=== PATIENT | female | born 1975 | race African-American/Black ===

== ENCOUNTER 2016-11-09 14:11 | Emergency (ER) | payer OTHER ==
[2016-11-09 14:28] VITALS: BP 125/86; PULSE 91; TEMP 97.8; BMI 39.6
--- NOTE | 2016-11-09 15:35 | PDOC ---
History of Present Illness - General Chief Complaint: Cold Symptoms Stated Complaint: FLU LIKE SYMPTOMS Time Seen by Provider: 11/09/16 14:25 History Source: Patient Exam Limitations: No Limitations - History of Present Illness Initial Comments: 11/09/16 16:10 11/09/16 16:11 Chief complaint: Sore throat, productive cough yellowish green, nasal congestion , body aches intermittent for 5 days History of present illness: Patient is a 40-year-old female with no significant medical problems here today complaining of a productive cough greenish yellow 5 days with nasal congestion and body aches 5 days. Patient reports that a few days ago hurts strep throat started to feel sore. 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 Patient reports having the influenza vaccine a few weeks ago. Patient denies any difficulty swallowing. Patient reports that she slightly short of breath with exertion. Patient also reports intermittent wheezing at night that clears somewhat with cough. Patient also reports some upper back pain when coughing intermittently. Patient has had no recent travel. Timing/Duration: intermittent (for 5 days ) Severity: mild Associated Symptoms: reports: cough (productive yellowish green ), other (body ache, nasal congestion, sore throat) Past History - Past Medical History Allergies/Adverse Reactions: Allergies Allergy/AdvReac Type Severity Reaction Status Date / Time No Known Allergies Allergy Verified 11/09/16 14:25 Home Medications: Ambulatory Orders Albuterol Sulfate Inhaler - [Ventolin Hfa Inhaler -] 2 inh PO Q4H PRN #1 inh Azithromycin [Zithromax 250mg Tablets -] 250 mg PO UTDICT #6 tab 11/09/16 Fluticasone Prop 0.05% Nasal [Flonase -] 2 spray NS DAILY #1 bot MDD once Guaifenesin Dm [Mucinex Dm -] 1 - 2 each PO Q12H PRN #20 tab.er.12h MDD 4 - Psycho/Social/Smoking Cessation Hx Suicidal Ideation: No Smoking Status: Yes (visible among belongings) Smoking History: Current every day smoker Have you smoked in the past 12 months: Yes Number of Cigarettes Smoked Daily: 10 Information on smoking cessation initiated: Yes Review of Systems - Review of Systems Able to Perform ROS?: Yes Constitutional: No: Symptoms Reported HEENTM: Yes: Nose Congestion, Throat Pain Respiratory: Yes: SOB with Exertion (intermittent last few days ), Wheezing ( intermittently at night mostly ), Productive cough (yellowish green for 5 days intermittently ). No: SOB at Rest, Stridor Cardiac (ROS): No: Symptoms Reported ABD/GI: No: Symptoms Reported : No: Symptoms Reported Musculoskeletal: Yes: Back Pain (upper b/l when coughing ) Integumentary: No: Symptoms Reported Neurological: No: Symptoms reported *Physical Exam - Vital Signs Last Vital Signs Temp Pulse Resp BP Pulse Ox 97.8 F 91 H 17 125/86 98 11/09/16 14:25 11/09/16 14:25 11/09/16 14:25 11/09/16 14:25 11/09/16 14:25 - Physical Exam General Appearance: Yes: Appropriately Dressed HEENT: positive: TMs Normal, Nasal Congestion. negative: Pharyngeal Erythema, Tonsillar Exudate, Tonsillar Erythema, Rhinorrhea, Sinus Tenderness Neck: negative: Lymphadenopathy (R), Lymphadenopathy (L) Respiratory/Chest: positive: Lungs Clear, Normal Breath Sounds. negative: Chest Tender, Respiratory Distress Cardiovascular: positive: Regular Rhythm, Regular Rate, S1, S2 Integumentary: positive: Normal Color Neurologic: positive: Alert, Normal Response, Responsive ED Treatment Course - ADDITIONAL ORDERS Additional order review: Laboratory Results 11/09/16 14:20 Urine HCG, Qual Negative Medical Decision Making - Medical Decision Making 11/09/16 16:13 Patient is a 40-year-old female with no significant medical problems here today complaining of a productive cough greenish yellow 5 days with nasal congestion and body aches 5 days. Patient reports that a few days ago hurts strep throat started to feel sore. 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 Patient reports having the influenza vaccine a few weeks ago. Patient denies any difficulty swallowing. Patient reports that she slightly short of breath with exertion. Patient also reports intermittent wheezing at night that clears somewhat with cough. Patient also reports some upper back pain when coughing intermittently. Patient has had no recent travel. Asthmatic bronchitis rule out an influenza a or B Rule out pneumonia Plan: X-ray chest PA and lateral ordered by Dr. Reynolds no infiltrate noted Influenza A and B rapid negative Urine hCG negative azithromycin 250 mg 2 tabs today then 1 tab daily for following 4 days Mucinex DM 1-2 tabs every 12 hours as needed for cough 5 days Ventolin HFA a pump 2 puffs every 4 hours as needed for shortness of breath wheezing flonase 2 sprays each nostril follow up with PCP 11/09/16 16:18 *DC/Admit/Observation/Transfer Diagnosis at time of Disposition: Bronchitis - Discharge Dispostion Disposition: HOME Condition at time of disposition: Stable - Referrals Referrals: Omar Julien [Primary Care Provider] - - Patient Instructions Additional Instructions: Follow up with your primary care provider within the next few days Return to emergency room if symptoms worsen any difficulty breathing or swallowing Rest and drink a lot a fluids Take acetaminophen or ibuprofen as needed as directed by bricklayer sewer for body aches or pains Patient voiced understanding of discharge instructions and all questions were answered - Post Discharge Activity Work/School Note: Back to Work
== END 2016-11-09 16:21 | disposition home or self-care (01) ==
LOC: JERFT 14:11
DX: J20.9 Acute bronchitis, unspecified (principal); F17.210 Nicotine dependence, cigarettes, uncomplicated
CPT/HCPCS: 71020-TC; 84703; 87804; 99281-25

== ENCOUNTER 2017-11-08 16:56 | Emergency (ER) | payer OTHER ==
[2017-11-08 17:12] VITALS: BP 148/90; PULSE 96; TEMP 98.6; BMI 38.5
--- NOTE | 2017-11-08 17:13 | PDOC ---
Rapid Medical Evaluation Time Seen by Provider: 11/08/17 17:08 Medical Evaluation: Allergies Allergy/AdvReac Type Severity Reaction Status Date / Time No Known Allergies Allergy Verified 11/08/17 17:07 11/08/17 17:08 The patient presents with a chief complaint of: Thoracic back pain that is radiating to the L chest for 3 days ago. Pain increased yesterday when went to bed. Took Motrin with no relief. Denies passing out, dizziness. Pain is a 10/ 10. Pain worse with movement I have performed a brief in-person evaluation of this patient; Pertinent physical exam findings: ambulatory, in no respiratory distress. RRR, ( -) m/r/g. Pain worse with palpation. I have ordered the following: EKG The patient will proceed to the ED for further evaluation.
--- NOTE | 2017-11-08 17:50 | PDOC ---
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 no shortness of breath. 11/08/17 17:57 Severity: mild Past History - Past Medical History Allergies/Adverse Reactions: Allergies Allergy/AdvReac Type Severity Reaction Status Date / Time No Known Allergies Allergy Verified 11/08/17 17:07 Home Medications: Ambulatory Orders Diazepam [Valium] 5 mg PO Q8H PRN #9 tablet MDD 15mg 11/08/17 Naproxen [Naprosyn] 500 mg PO BID #14 tablet 11/08/17 - Suicide/Smoking/Psychosocial Hx Smoking Status: Yes (visible among belongings) Smoking History: Current every day smoker Have you smoked in the past 12 months: Yes Number of Cigarettes Smoked Daily: 10 Information on smoking cessation initiated: No *Physical Exam - Vital Signs Last Vital Signs Temp Pulse Resp BP Pulse Ox 98.6 F 96 H 19 148/90 100 11/08/17 17:07 11/08/17 17:07 11/08/17 17:07 11/08/17 17:07 11/08/17 17:07 - Physical Exam General Appearance: Yes: Nourished, Appropriately Dressed HEENT: positive: EOMI, JANET Neck: positive: Supple. negative: Tender, Lymphadenopathy (R), Lymphadenopathy (L) Respiratory/Chest: positive: Chest Tender (reproducable chest pain to touch left side anteriorly ), Lungs Clear, Normal Breath Sounds Cardiovascular: positive: Regular Rhythm, Regular Rate Gastrointestinal/Abdominal: positive: Normal Bowel Sounds, Soft Musculoskeletal: positive: Normal Inspection, Muscle Spasm (left mid thoracic pain , no rash, neg vetebral tenderness ). negative: CVA Tenderness, CVA Tenderness (R), CVA Tenderness (L), Vertebral Tenderness Extremity: positive: Normal Capillary Refill, Normal Inspection, Normal Range of Motion Integumentary: positive: Normal Color, Dry, Warm Neurologic: positive: quill skinner II-XII NML intact, Fully Oriented, Alert, Normal Mood/ Affect, Normal Response, Motor Strength 5/5 Medical Decision Making - Medical Decision Making 11/08/17 18:18 cc: left sided back pain radiates to the left rib area no trauma, worse with movement no fever no cough no oral contraceptives no history of surgery or travel Wells criteria for PE is 0.0 points Low risk group: 1.3% chance of PE in an ED population. Another study assigned scores 4 as PE Unlikely and had a 3% incidence of PE. PERC criteria: 0 criteria No need for further workup, as <2% chance of PE. If no criteria are positive and clinicians pre-test probability is <15%, PERC Rule criteria are satisfied. 11/08/17 19:05 EKG is NSR signed by Dr.Miriam Guardado toradol given and CXR pt feels better after the toradol will dc home with strict follow up with PCP strict follow up instructions given pt agrees with the plan of care. 11/08/17 19:17 *DC/Admit/Observation/Transfer Diagnosis at time of Disposition: Muscle strain - Discharge Dispostion Disposition: HOME Condition at time of disposition: Good - Prescriptions Prescriptions: Diazepam [Valium] 5 mg PO Q8H PRN #9 tablet MDD 15mg PRN Reason: Muscle Spasms Naproxen [Naprosyn] 500 mg PO BID #14 tablet - Referrals Referrals: Omar Julien [Primary Care Provider] - - Patient Instructions Additional Instructions: take the naprsoyn as directed for pain take valium for any muscle spasm warm heating pad to the area of pain follow with your doctor tomorrow for follow up Please return to ER for any worsening symptoms - Post Discharge Activity
[2017-11-08] MEDS ORDERED: KETOROLAC TROMETHAMINE 60 MG/2 ML VIAL IM ONE (18:26)
[2017-11-08] MEDS ORDERED: KETOROLAC TROMETHAMINE 60 MG/2 ML VIAL ONE (18:26)
--- NOTE | 2017-11-09 09:38 | EKG ---
Test Reason : Blood Pressure : / mmHG Vent. Rate : 076 BPM Atrial Rate : 076 BPM P-R Int : 170 ms QRS Dur : 084 ms QT Int : 388 ms P-R-T Axes : 038 -12 031 degrees QTc Int : 436 ms NORMAL SINUS RHYTHM LOW VOLTAGE QRS Confirmed by BUNNY AMOR MD ([id number]) on 11/09/2017 9:37:45 AM Referred By: Confirmed By:BUNNY AMOR MD
== END 2017-11-08 19:12 | disposition home or self-care (01) ==
LOC: JERFT 16:56
PROC: 3E0233Z Introduction of Anti-inflammatory into Muscle, Percutaneous Approach (ICD-10-PCS; principal; 2017-11-08)
DX: S29.012A Strain of muscle and tendon of back wall of thorax, initial encounter (principal); M13.862 Other specified arthritis, left knee; M13.861 Other specified arthritis, right knee; F17.210 Nicotine dependence, cigarettes, uncomplicated; X58.XXXA Exposure to other specified factors, initial encounter; Y93.89 Activity, other specified; Y92.89 Other specified places as the place of occurrence of the external cause; Y99.8 Other external cause status
CPT/HCPCS: 71046-TC-FY; 84703; 93005; 93010; 99281-25

== ENCOUNTER 2017-12-11 22:44 | Emergency (ER) | payer OTHER ==
[2017-12-11 23:03] VITALS: TEMP 99; BMI 39.1
--- NOTE | 2017-12-11 23:44 | PDOC ---
History of Present Illness <IrvinSladeti Navarroh - Last Filed: 12/11/17 23:43> - General History Source: Patient Exam Limitations: No Limitations - History of Present Illness Initial Comments: 12/12/17 00:57 The patient is a 41 year old female, with a significant past medical history of obesity, gallstones, who presents to the emergency department with, one day of intermittent, non radiating, sharp, epigastric abdominal pain. The patient states she was sitting down watching wrestling on the television with her son yesterday when the epigastric abdominal pain began. The patient also reports recent vaginal discharge and dysuria beginning earlier today. She denies any recent fall or trauma. She denies recent fevers, chills, headache or dizziness. She denies recent nausea, vomit, diarrhea or constipation. She denies recent frequency, urgency or hematuria. She denies recent chest pain or shortness of breath. Allergies: NKA Past Surgical History: Left knee surgery <Jamaal Horne - Last Filed: 12/12/17 01:50> - General Chief Complaint: Pain, Acute Stated Complaint: STOMACH PAIN Time Seen by Provider: 12/11/17 23:34 Past History - Past Medical History COPD: No - Suicide/Smoking/Psychosocial Hx Smoking Status: Yes (visible among belongings) Smoking History: Current every day smoker Have you smoked in the past 12 months: Yes Number of Cigarettes Smoked Daily: 10 Information on smoking cessation initiated: No <IrvinSladeti De León - Last Filed: 12/11/17 23:43> <Jamaal Horne - Last Filed: 12/12/17 01:50> - Past Medical History Allergies/Adverse Reactions: Allergies Allergy/AdvReac Type Severity Reaction Status Date / Time No Known Allergies Allergy Verified 11/08/17 17:07 Home Medications: Ambulatory Orders Cyclobenzaprine HCl 10 mg PO BID 12/11/17 Gabapentin 300 mg PO BID 12/11/17 Meloxicam [Mobic] 7.5 mg PO DAILY PRN 12/11/17 Sennosides [Senna] 17.2 mg PO HS 12/11/17 Review of Systems - Review of Systems Comments:: 12/12/17 00:58 CONSTITUTIONAL: Absent: fever, no chills, no fatigue EYES: Absent: visual changes ENT: Absent: ear pain, no sore throat CARDIOVASCULAR: Absent: chest pain, no palpitations RESPIRATORY: Absent: cough, no SOB GI: Present: +Epigastric abominal pain. Absent: no nausea, no vomiting, no constipation, no diarrhea GENITOURINARY: Present: +Dysuria. +Vaginal discharge. Absent: no frequency, no hematuria MUSKULOSKELETAL: Absent: back pain, no arthralgia, no myalgia SKIN: Absent: rash NEURO: Absent: headache <Jamaal Horne - Last Filed: 12/12/17 01:50> *Physical Exam - Vital Signs Last Vital Signs Temp Pulse Resp BP Pulse Ox 99 F 95 H 18 116/74 100 12/11/17 23:00 12/11/17 23:00 12/11/17 23:00 12/11/17 23:00 12/11/17 23:00 <Socorro Bryan Genet - Last Filed: 12/11/17 23:43> - Vital Signs Last Vital Signs Temp Pulse Resp BP Pulse Ox 99 F 95 H 18 116/74 100 12/11/17 23:00 12/11/17 23:00 12/11/17 23:00 12/11/17 23:00 12/11/17 23:00 - Physical Exam Comments: 12/12/17 00:59 GENERAL: Well developed, well nourished. Awake and alert. No acute distress. HEENT: Normocephalic, atraumatic. PERRLA, EOMI. No conjunctival pallor. Sclera are non- icteric. Moist mucous membranes. Oropharynx is clear. NECK: Supple. Full ROM. No JVD. Carotid pulses 2+ and symmetric, without bruits. No thyromegaly. No lymphadenopathy. CARDIOVASCULAR: Regular rate and rhythm. No murmurs, rubs, or gallops. Distal pulses are 2+ and symmetric. PULMONARY: No evidence of respiratory distress. Lungs clear to auscultation bilaterally. No wheezing, rales or rhonchi. ABDOMINAL: +Protuberant abdomen. +Tenderness periumbilical and epigastric. Soft. Non- distended. No rebound or guarding. No organomegaly. Normoactive bowel sounds. PELVIC: +Thick white discharge. MUSCULOSKELETAL Normal range of motion at all joints. No bony deformities or tenderness. No CVA tenderness. EXTREMITIES: No cyanosis. No clubbing. No edema. No calf tenderness. SKIN: Warm and dry. Normal capillary refill. No rashes. No jaundice. NEUROLOGICAL: Alert, awake, appropriate. Cranial nerves 2-12 intact. No deficits to light touch and temperature in face, upper extremities and lower extremities. No motor deficits in the in face, upper extremities and lower extremities. Normoreflexic in the upper and lower extremities. Normal speech. Toes are down- going bilaterally. Gait is normal without ataxia. PSYCHIATRIC: Cooperative. Good eye contact. Appropriate mood and affect. <Jamaal Horne - Last Filed: 12/12/17 01:50> ED Treatment Course - ADDITIONAL ORDERS Additional order review: Laboratory Results 12/11/17 23:59 Urine Color Red Urine Appearance Turbid Urine pH 7.0 Ur Specific [place] 1.002 Urine Protein Negative Urine Glucose (UA) Negative Urine Ketones Negative Urine Blood 1+ H Urine Nitrite Negative Urine Bilirubin Negative Urine Urobilinogen Negative Ur Leukocyte Esterase 3+ H Urine WBC (Auto) 6 Urine RBC (Auto) 7 Ur Epithelial Cells Moderate Urine Bacteria Few Urine Mucus Rare <Jamaal Horne - Last Filed: 12/12/17 01:50> *DC/Admit/Observation/Transfer <Socorro Bryan - Last Filed: 12/11/17 23:43> - Attestations Scribe Attestion: 12/12/17 01:01 Documentation prepared by Jamaal Horne, acting as biomedical instrument technician for Socorro Bryan MD. <Jamaal Horne - Last Filed: 12/12/17 01:50> - Referrals Referrals: Omar Julien [Primary Care Provider] - - Patient Instructions - Post Discharge Activity
[2017-12-12 00:05] LABS: URINE APPEARANCE TURBID; URINE BILIRUBIN NEGATIVE (<2.0 mg/dL); URINE BLOOD 1+ (NEGATIVE); URINE COLOR RED; URINE GLUCOSE (UA) NEGATIVE (NEGATIVE); URINE KETONE NEGATIVE (NEGATIVE); URINE NITRITE NEGATIVE (NEGATIVE); URINE PROTEIN NEGATIVE (NEGATIVE); URINE UROBILINOGEN NEGATIVE mg/dL (0.2-1.0)
[2017-12-12 00:19] LABS: URINE LEUK ESTERASE 3+ (NEGATIVE)
[2017-12-12 00:20] LABS: EPI CELLS MODERATE /HPF (FEW); URINE BACTERIA FEW /hpf (NONE SEEN); URINE MUCUS RARE
[2017-12-12] MEDS ORDERED: FLUCONAZOLE 100 MG TABLET (UD) PO ONE (01:39)
[2017-12-12] MEDS ORDERED: SODIUM CHLORIDE 1,000 ML IV STA (01:40)
[2017-12-12] MEDS ORDERED: FLUCONAZOLE 100 MG TABLET (UD) ONE (02:00)
[2017-12-12 02:39] LABS: BASO % 0.9 % (0-2.0); EOS % 4.3 % (0-4.5); HEMATOCRIT 44.6 % (32.4-45.2); HEMOGLOBIN 15.2 GM/dL (10.7-15.3); LYMPH % 37.2 % (8-40); MCH 30.6 pg (25.7-33.7); MCHC 34.2 g/dl (32.0-36.0); MEAN CELL VOLUME 89.5 fl (80-96); MEAN PLT VOLUME 9.3 fl (7.5-11.1); MONO % 5.4 % (3.8-10.2); NEUT % 52.2 % (42.8-82.8); PLATELET COUNT 209 K/MM3 (134-434); RBC 4.98 M/mm3 (3.60-5.2); RDW 14.4 % (11.6-15.6); WHITE BLOOD COUNT 9.8 K/mm3 (4.0-10.0)
[2017-12-12 03:04] LABS: ALBUMIN 3.9 g/dl (3.4-5.0); ALK PHOS 76 U/L (45-117); ANION GAP 11 (8-16); BILIRUBIN,TOTAL 0.3 mg/dL (0.2-1.0); BLOOD UREA NITROGEN 9 mg/dL (7-18); CALCIUM 9.3 mg/dL (8.5-10.1); CHLORIDE 103 mmol/L (98-107); CO2 26 mmol/L (21-32); CREATININE 0.7 mg/dL (0.55-1.02); GLUCOSE,RANDOM 79 mg/dL (74-106); POTASSIUM 4.5 mmol/L (3.5-5.1); SGOT/AST 20 U/L (15-37); SGPT/ALT 19 U/L (12-78); SODIUM 140 mmol/L (136-145); TOT PROT 7.3 g/dl (6.4-8.2)
--- NOTE | 2017-12-12 05:14 | PDOC ---
*Physical Exam - Vital Signs Last Vital Signs Temp Pulse Resp BP Pulse Ox 99 F 95 H 18 116/74 100 12/11/17 23:00 12/11/17 23:00 12/11/17 23:00 12/11/17 23:00 12/11/17 23:00 <Shon Cadet - Last Filed: 12/12/17 05:13> - Vital Signs Last Vital Signs Temp Pulse Resp BP Pulse Ox 99 F 95 H 18 116/74 100 12/11/17 23:00 12/11/17 23:00 12/11/17 23:00 12/11/17 23:00 12/11/17 23:00 <Eleni Gee - Last Filed: 12/12/17 05:19> ED Treatment Course - LABORATORY CBC & Chemistry Diagram: 12/12/17 02:14 12/12/17 02:14 - ADDITIONAL ORDERS Additional order review: Laboratory Results 12/12/17 12/12/17 12/11/17 02:33 02:14 23:59 Sodium 140 Potassium 4.5 Chloride 103 Carbon Dioxide 26 Anion Gap 11 BUN 9 Creatinine 0.7 Creat Clearance w eGFR > 60 Random Glucose 79 Calcium 9.3 Total Bilirubin 0.3 AST 20 ALT 19 Alkaline Phosphatase 76 Total Protein 7.3 Albumin 3.9 Serum , Qual Negative Urine Color Urine Appearance Urine pH Ur Specific [place] Urine Protein Urine Glucose (UA) Urine Ketones Urine Blood Urine Nitrite Urine Bilirubin Urine Urobilinogen Ur Leukocyte Esterase Urine WBC (Auto) Urine RBC (Auto) Ur Epithelial Cells Urine Bacteria Urine Mucus Urine HCG, Qual Negative 12/11/17 23:59 Sodium Potassium Chloride Carbon Dioxide Anion Gap BUN Creatinine Creat Clearance w eGFR Random Glucose Calcium Total Bilirubin AST ALT Alkaline Phosphatase Total Protein Albumin Serum , Qual Urine Color Red Urine Appearance Turbid Urine pH 7.0 Ur Specific [place] 1.002 Urine Protein Negative Urine Glucose (UA) Negative Urine Ketones Negative Urine Blood 1+ H Urine Nitrite Negative Urine Bilirubin Negative Urine Urobilinogen Negative Ur Leukocyte Esterase 3+ H Urine WBC (Auto) 6 Urine RBC (Auto) 7 Ur Epithelial Cells Moderate Urine Bacteria Few Urine Mucus Rare Urine HCG, Qual 12/12/17 02:14 RBC 4.98 MCV 89.5 MCHC 34.2 RDW 14.4 MPV 9.3 Neutrophils % 52.2 Lymphocytes % 37.2 Monocytes % 5.4 Eosinophils % 4.3 Basophils % 0.9 - Medications Given in the ED: ED Medications Discontinued Medications Generic Name Dose Route Start Last Admin Trade Name [place] PRN Reason Stop Dose Admin Fluconazole 200 mg 12/12/17 01:39 12/12/17 02:13 Diflucan - PO 12/12/17 01:40 200 mg ONCE ONE Administration Sodium Chloride 1,000 mls @ 1,000 mls/hr 12/12/17 01:40 12/12/17 02:13 Normal Saline - IV 12/12/17 02:39 1,000 mls/hr ASDIR STA Administration <Shon Cadet - Last Filed: 12/12/17 05:13> - LABORATORY CBC & Chemistry Diagram: 12/12/17 02:14 12/12/17 02:14 - ADDITIONAL ORDERS Additional order review: Laboratory Results 12/12/17 12/12/17 12/11/17 02:33 02:14 23:59 Sodium 140 Potassium 4.5 Chloride 103 Carbon Dioxide 26 Anion Gap 11 BUN 9 Creatinine 0.7 Creat Clearance w eGFR > 60 Random Glucose 79 Calcium 9.3 Total Bilirubin 0.3 AST 20 ALT 19 Alkaline Phosphatase 76 Total Protein 7.3 Albumin 3.9 Serum , Qual Negative Urine Color Urine Appearance Urine pH Ur Specific [place] Urine Protein Urine Glucose (UA) Urine Ketones Urine Blood Urine Nitrite Urine Bilirubin Urine Urobilinogen Ur Leukocyte Esterase Urine WBC (Auto) Urine RBC (Auto) Ur Epithelial Cells Urine Bacteria Urine Mucus Urine HCG, Qual Negative 12/11/17 23:59 Sodium Potassium Chloride Carbon Dioxide Anion Gap BUN Creatinine Creat Clearance w eGFR Random Glucose Calcium Total Bilirubin AST ALT Alkaline Phosphatase Total Protein Albumin Serum , Qual Urine Color Red Urine Appearance Turbid Urine pH 7.0 Ur Specific [place] 1.002 Urine Protein Negative Urine Glucose (UA) Negative Urine Ketones Negative Urine Blood 1+ H Urine Nitrite Negative Urine Bilirubin Negative Urine Urobilinogen Negative Ur Leukocyte Esterase 3+ H Urine WBC (Auto) 6 Urine RBC (Auto) 7 Ur Epithelial Cells Moderate Urine Bacteria Few Urine Mucus Rare Urine HCG, Qual 12/12/17 02:14 RBC 4.98 MCV 89.5 MCHC 34.2 RDW 14.4 MPV 9.3 Neutrophils % 52.2 Lymphocytes % 37.2 Monocytes % 5.4 Eosinophils % 4.3 Basophils % 0.9 - RADIOLOGY Radiology Studies Ordered: 12/12/17 05:18 Abdomen/Pelvis CT was reviewed by Dr. Cdaet and over-read by Radiology. Impression: No bowel obstruction, colitis, diverticulitis, free fluid or free air. Normal appendix. Unremarkable pancreas. Small cystic foci bilateral kidneys. Cholecystectomy. Small splenic capsular calcifications. - Medications Given in the ED: ED Medications Discontinued Medications Generic Name Dose Route Start Last Admin Trade Name Freq PRN Reason Stop Dose Admin Fluconazole 200 mg 12/12/17 01:39 12/12/17 02:13 Diflucan - PO 12/12/17 01:40 200 mg ONCE ONE Administration Sodium Chloride 1,000 mls @ 1,000 mls/hr 12/12/17 01:40 12/12/17 02:13 Normal Saline - IV 12/12/17 02:39 1,000 mls/hr ASDIR STA Administration <Eleni Gee - Last Filed: 12/12/17 05:19> *DC/Admit/Observation/Transfer - Discharge Dispostion Admit: No <Shon Cadet - Last Filed: 12/12/17 05:13> <Eleni Gee - Last Filed: 12/12/17 05:19> Diagnosis at time of Disposition: Abdominal pain Qualifiers: Abdominal location: generalized Qualified Code(s): R10.84 - Generalized abdominal pain - Discharge Dispostion Disposition: HOME Condition at time of disposition: Stable - Referrals Referrals: Omar Julien [Primary Care Provider] - - Patient Instructions Printed Discharge Instructions: DI for Abdominal Pain-Adult - Post Discharge Activity
[2017-12-12 05:26] VITALS: BP 111/55; PULSE 79
== END 2017-12-12 05:29 | disposition home or self-care (01) ==
LOC: JER 22:44
PROC: 3E0337Z Introduction of Electrolytic and Water Balance Substance into Peripheral Vein, Percutaneous Approach (ICD-10-PCS; principal; 2017-12-11)
DX: F17.210 Nicotine dependence, cigarettes, uncomplicated (principal); R10.84 Generalized abdominal pain
CPT/HCPCS: 36415; 74177-TC; 80053; 81003; 81015; 84703; 85025; 96360; 99284-25; J7030

== ENCOUNTER 2018-06-13 02:12 | Emergency (ER) | payer OTHER ==
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
[2018-06-13 03:07] VITALS: TEMP 98.2; BMI 39.0
[2018-06-13] MEDS ORDERED: ACETAMINOPHEN 500 MG TABLET (FP) PO ONE (03:20)
[2018-06-13] MEDS ORDERED: KETOROLAC TROMETHAMINE 30 MG/1 ML VIAL IM ONE (03:20)
[2018-06-13] MEDS ORDERED: KETOROLAC TROMETHAMINE 30 MG/1 ML VIAL ONE (03:48)
[2018-06-13] MEDS ORDERED: ACETAMINOPHEN 325 MG TABLET (FP) ONE (03:48)
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
[2018-06-13 04:40] VITALS: BP 110/64; PULSE 78
== END 2018-06-13 04:52 | disposition home or self-care (01) ==
LOC: JER 02:12
PROC: 3E0233Z Introduction of Anti-inflammatory into Muscle, Percutaneous Approach (ICD-10-PCS; principal; 2018-06-13)
DX: M54.16 Radiculopathy, lumbar region (principal); M62.830 Muscle spasm of back; S39.012A Strain of muscle, fascia and tendon of lower back, initial encounter; V43.52XA Car driver injured in collision with other type car in traffic accident, initial encounter; Y92.488 Other paved roadways as the place of occurrence of the external cause; Y93.89 Activity, other specified; Y99.8 Other external cause status
CPT/HCPCS: 99281-25

== ENCOUNTER 2018-11-30 02:38 | Emergency (ER) | payer OTHER ==
[2018-11-30 04:15] VITALS: BP 124/83; PULSE 81; TEMP 98.4; BMI 40.8
--- NOTE | 2018-11-30 04:20 | PDOC ---
History of Present Illness - General Chief Complaint: Pain, Acute Stated Complaint: PELVIC PAIN,RASH Time Seen by Provider: 11/30/18 04:19 - History of Present Illness Initial Comments: 11/30/18 04:37 Ms. Castro is a 42 yo female w/ pmh of obesity who presents for evaluation of several day history of abscess to RLQ of abdomen. Patient reports she has had similar abscesses in the past requiring drainage. Patient does not believe she has DM, HTN, HLD, or any other medical conditions. The patient denies chest pain, shortness of breath, headache and dizziness. Denies fever, chills, nausea, vomit, diarrhea and constipation. Denies dysuria, frequency, urgency and hematuria. Past History - Past Medical History Allergies/Adverse Reactions: Allergies Allergy/AdvReac Type Severity Reaction Status Date / Time No Known Allergies Allergy Verified 11/30/18 04:15 Home Medications: Ambulatory Orders Cyclobenzaprine HCl 10 mg PO BID 12/11/17 Gabapentin 300 mg PO BID 12/11/17 Meloxicam [Mobic] 7.5 mg PO DAILY PRN 12/11/17 Sennosides [Senna] 17.2 mg PO HS 12/11/17 Miconazole/Cleanser 17 On Wipe [Monistat 3 Combo Pack] 1 each VG ONCE #1 kit Lidocaine 5% Patch [Lidoderm Patch -] 1 patch TP DAILY PRN #30 patch 01/05/18 Methocarbamol [Robaxin -] 500 mg PO TID PRN #30 tablet 01/05/18 Naproxen Sodium 220 mg PO BID PRN #30 tablet 01/05/18 Oxycodone HCl/Acetaminophen [Percocet 5-325 mg Tablet -] 1 tab PO TID PRN #12 tablet MDD 3 01/05/18 Cephalexin [Keflex] 500 mg PO BID #14 capsule 11/30/18 COPD: No - Suicide/Smoking/Psychosocial Hx Smoking Status: Yes (visible among belongings) Smoking History: Current every day smoker Have you smoked in the past 12 months: Yes Number of Cigarettes Smoked Daily: 10 Information on smoking cessation initiated: No Hx Alcohol Use: No Drug/Substance Use Hx: No Review of Systems - Review of Systems Comments:: 11/30/18 04:41 GENERAL/CONSTITUTIONAL: No fever or chills. No weakness. HEAD, EYES, EARS, NOSE AND THROAT: No change in vision. No ear pain or discharge. No sore throat. CARDIOVASCULAR: No chest pain or shortness of breath RESPIRATORY: No cough, wheezing, or hemoptysis. GASTROINTESTINAL: No nausea, vomiting, diarrhea or constipation. GENITOURINARY: No dysuria, frequency, or change in urination. MUSCULOSKELETAL: No joint or muscle swelling or pain. No neck or back pain. SKIN: +Abdominal swelling / pain for several days to Q NEUROLOGIC: No headache, vertigo, loss of consciousness, or change in strength/ sensation. ENDOCRINE: No increased thirst. No abnormal weight change HEMATOLOGIC/LYMPHATIC: No anemia, easy bleeding, or history of blood clots. ALLERGIC/IMMUNOLOGIC: No hives or skin allergy. *Physical Exam - Vital Signs Last Vital Signs Temp Pulse Resp BP Pulse Ox 98.4 F 81 16 124/83 100 11/30/18 02:38 11/30/18 02:38 11/30/18 02:38 11/30/18 02:38 11/30/18 02:38 - Physical Exam Comments: 11/30/18 04:41 GENERAL: Awake, alert, and fully oriented, in no acute distress HEAD: No signs of trauma, normocephalic, atraumatic EYES: PERRLA, EOMI, sclera anicteric, conjunctiva clear ENT: Auricles normal inspection, hearing grossly normal, nares patent, oropharynx clear without exudates. Moist mucosa NECK: Normal ROM, supple, no lymphadenopathy, JVD, or masses LUNGS: No distress, speaks full sentences, clear to auscultation bilaterally HEART: Regular rate and rhythm, normal S1 and S2, no murmurs, rubs or gallops, peripheral pulses normal and equal bilaterally. ABDOMEN: +Approx. 2-3cm abscess noted beneath panus on right side. Otherwise soft, nontender, normoactive bowel sounds. No guarding, no rebound. No masses EXTREMITIES: Normal inspection, Normal range of motion, no edema. No clubbing or cyanosis. NEUROLOGICAL: Cranial nerves II through XII grossly intact. Normal speech, normal gait, no focal sensorimotor deficits SKIN: Warm, Dry, normal turgor, no rashes or lesions noted. Moderate Sedation - Procedure Monitoring Vital Signs: Procedure Monitoring Vital Signs Temperature 98.4 F 11/30/18 02:38 Pulse Rate 81 03/16/19 02:38 Respiratory Rate 16 11/30/18 02:38 Blood Pressure 124/83 11/30/18 02:38 O2 Sat by Pulse Oximetry (%) 100 11/30/18 02:38 Procedures - Incision and Drainage I&D Site: Right: Abdomen Betadine cleansed: No Anesthesia: 1% Lidocaine w/ Epi Volume(ml): 2 Attempts: 1 Complications: none Dressing: Yes Medical Decision Making - Medical Decision Making 11/30/18 04:55 Ms. Castro is a 42 yo female w/ pmh as described who presents for evaluation of abscess. POCUS revealed shallow 2-3 cm simple US. Abscess drained at bedside and patient placed on keflex Rx. Discharging to home. *DC/Admit/Observation/Transfer Diagnosis at time of Disposition: Abscess - Discharge Dispostion Disposition: HOME Condition at time of disposition: Fair - Prescriptions Prescriptions: Cephalexin [Keflex] 500 mg PO BID #14 capsule - Referrals Referrals: Nereida Le MD [Primary Care Provider] - - Patient Instructions Printed Discharge Instructions: DI for Skin Abscess Additional Instructions: You were evaluated today in the ER for your abscess. No concerning findings were found and we drained your abscess. We also started you on antibiotics and sent a prescription to your pharmacy. Take all medications as proscribed and follow-up with primary care provider in 1-2 days for further evaluation. Return to ER if any fever, chills, increase in pain, or other concerning symptoms. - Post Discharge Activity
--- NOTE | 2018-11-30 04:21 | PDOC ---
Attending Attestation - Resident Resident Name: Alfonzo Zuniga - ED Attending Attestation I have performed the following: I have examined & evaluated the patient, The case was reviewed & discussed with the resident, I agree w/resident's findings & plan
[2018-11-30] MEDS ORDERED: CEPHALEXIN MONOHYDRATE 500 MG CAPSULE (UD) PO ONE (04:56)
[2018-11-30] MEDS ORDERED: CEPHALEXIN MONOHYDRATE 500 MG CAPSULE (UD) ONE (05:02)
== END 2018-11-30 05:10 | disposition home or self-care (01) ==
LOC: JER 02:38
PROC: 0J980ZZ Drainage of Abdomen Subcutaneous Tissue and Fascia, Open Approach (ICD-10-PCS; principal; 2018-11-30)
PROC: BH49ZZZ Ultrasonography of Abdominal Wall (ICD-10-PCS; 2018-11-30)
DX: L02.211 Cutaneous abscess of abdominal wall (principal)
CPT/HCPCS: 10060; 76705; 99282-25

== ENCOUNTER → 2019-07-10 | Day surgery (SDC) | payer OTHER | END | disposition home or self-care (01) | LOC: JRADIR 10:26 → JRADUS-SUR 10:26 | PROVIDERS: ATTEND Obstetrics & Gynecology | PROC: BU12YZZ Fluoroscopy of Bilateral Fallopian Tubes using Other Contrast (ICD-10-PCS; principal; 2019-07-10) | DX: N97.9 Female infertility, unspecified (principal) | CPT/HCPCS: 58340; 74740-TC-FY; 76000-TC-FY; 84703 ==

== ENCOUNTER → 2019-09-04 | Day surgery (SDC) | payer OTHER | END | disposition home or self-care (01) | LOC: JRADUS-SUR 09:57 → JRAD 09:57 | PROVIDERS: ATTEND Obstetrics & Gynecology | PROC: BU08YZZ Plain Radiography of Uterus and Fallopian Tubes using Other Contrast (ICD-10-PCS; principal; 2019-09-04) | DX: N97.9 Female infertility, unspecified (principal) | CPT/HCPCS: 58340; 74740-TC-FY; 76000-TC-FY; 84703 ==

== ENCOUNTER 2021-10-09 01:55 | Emergency (ER) | payer OTHER ==
[2021-10-09] MEDS ORDERED: ACETAMINOPHEN 500 MG TABLET (FP) PO ONE (02:40)
[2021-10-09 02:45] VITALS: BP 120/56; PULSE 94; TEMP 98.5; BMI 42.9
[2021-10-09] MEDS ORDERED: ACETAMINOPHEN 325 MG TABLET (FP) ONE (02:52)
[2021-10-09 03:52] LABS: BASO % 0.6 % (0-2.0); EOS % 3.4 % (0-4.5); HEMATOCRIT 42.3 % (32.4-45.2); HEMOGLOBIN 14.2 GM/dL (10.7-15.3); LYMPH % 37.4 % (8-40); MCH 30.5 pg (25.7-33.7); MCHC 33.6 g/dl (32.0-36.0); MEAN CELL VOLUME 90.8 fl (80-96); MEAN PLT VOLUME 8.7 fl (7.5-11.1); MONO % 6.1 % (3.8-10.2); NEUT % 52.5 % (42.8-82.8); PLATELET COUNT 188 10^3/uL (134-434); RBC 4.65 M/mm3 (3.60-5.2); RDW 14.8 % (11.6-15.6); WHITE BLOOD COUNT 9.3 K/mm3 (4.0-10.0)
[2021-10-09 04:23] LABS: CHLORIDE 109 mmol/L (98-107); SODIUM 141 mmol/L (136-145)
[2021-10-09 04:25] LABS: ALBUMIN 3.3 g/dl (3.4-5.0); ANION GAP 7 MMOL/L (8-16); BLOOD UREA NITROGEN 11.8 mg/dL (7-18); CALCIUM 8.8 mg/dL (8.5-10.1); CO2 25 mmol/L (21-32); GLUCOSE,RANDOM 96 mg/dL (74-106)
[2021-10-09 04:28] LABS: CREATININE 0.9 mg/dL (0.55-1.3); SGOT/AST 21 U/L (15-37)
[2021-10-09 04:29] LABS: SGPT/ALT 24 U/L (13-61)
[2021-10-09 04:30] LABS: BILIRUBIN,TOTAL 0.2 mg/dL (0.2-1); TOT PROT 6.2 g/dl (6.4-8.2)
[2021-10-09 04:31] LABS: ALK PHOS 68 U/L (45-117)
== END 2021-10-09 05:01 | disposition home or self-care (01) ==
LOC: JER 01:55
DX: R07.9 Chest pain, unspecified (principal); U09.9 Post COVID-19 condition, unspecified
CPT/HCPCS: 36415; 71045-TC-FY; 80053; 82550; 84484; 85025; 93005; 93010; 99285-25; C9803; U0003; U0005

== ENCOUNTER 2021-10-25 21:50 | Emergency (ER) | payer OTHER ==
[2021-10-25 22:00] VITALS: BMI 43.2
[2021-10-25] MEDS ORDERED: KETOROLAC TROMETHAMINE 30 MG/1 ML VIAL IVPUSH ONE (23:06)
[2021-10-25] MEDS ORDERED: SODIUM CHLORIDE 0.9% 500 ML INFUS.BAG IV ONE (23:06)
[2021-10-25] MEDS ORDERED: FAMOTIDINE 20 MG/50 ML IVPB 20 MG/50 ML MG IVPB ONE ×2 (23:06→23:13)
[2021-10-25] MEDS ORDERED: KETOROLAC TROMETHAMINE 30 MG/1 ML VIAL ONE (23:13)
[2021-10-25 23:48] LABS: BASO % 0.7 % (0-2.0); EOS % 2.6 % (0-4.5); HEMATOCRIT 42.5 % (32.4-45.2); HEMOGLOBIN 14.7 GM/dL (10.7-15.3); LYMPH % 30.8 % (8-40); MCH 31.3 pg (25.7-33.7); MCHC 34.5 g/dl (32.0-36.0); MEAN CELL VOLUME 90.8 fl (80-96); MEAN PLT VOLUME 8.6 fl (7.5-11.1); MONO % 6.1 % (3.8-10.2); NEUT % 59.8 % (42.8-82.8); PLATELET COUNT 163 10^3/uL (134-434); RBC 4.68 M/mm3 (3.60-5.2); RDW 15.2 % (11.6-15.6); WHITE BLOOD COUNT 8.9 K/mm3 (4.0-10.0)
[2021-10-25 23:49] LABS: PH,URINE 7.5 (5.0-8.0); URINE APPEARANCE CLOUDY; URINE BILIRUBIN NEGATIVE (NEGATIVE); URINE COLOR YELLOW; URINE GLUCOSE (UA) NEGATIVE (NEGATIVE); URINE KETONE TRACE (NEGATIVE); URINE LEUK ESTERASE NEGATIVE (NEGATIVE); URINE NITRITE NEGATIVE (NEGATIVE); URINE PROTEIN NEGATIVE (NEGATIVE)
[2021-10-25 23:52] LABS: HCG,QUALITATIVE URINE Negative
[2021-10-26 01:34] VITALS: BP 125/65; PULSE 59; TEMP 98.3
[2021-10-26] MEDS ORDERED: morphine CARPU-JECT 2 MG/1 ML DISP.SYRIN IVPUSH ONE (01:53)
[2021-10-26 02:16] LABS: ALBUMIN 3.6 g/dl (3.4-5.0); CALCIUM 8.5 mg/dL (8.5-10.1)
[2021-10-26 02:17] LABS: BLOOD UREA NITROGEN 13.1 mg/dL (7-18)
[2021-10-26 02:20] LABS: CREATININE 0.9 mg/dL (0.55-1.3)
[2021-10-26 02:21] LABS: BILIRUBIN,TOTAL 0.4 mg/dL (0.2-1); TOT PROT 6.9 g/dl (6.4-8.2)
== END 2021-10-26 03:58 | disposition home or self-care (01) ==
LOC: JER 21:50
PROC: 3E033NZ Introduction of Analgesics, Hypnotics, Sedatives into Peripheral Vein, Percutaneous Approach (ICD-10-PCS; principal; 2021-10-25)
PROC: 3E0333Z Introduction of Anti-inflammatory into Peripheral Vein, Percutaneous Approach (ICD-10-PCS; 2021-10-25)
PROC: 3E033GC Introduction of Other Therapeutic Substance into Peripheral Vein, Percutaneous Approach (ICD-10-PCS; 2021-10-25)
DX: R10.11 Right upper quadrant pain (principal)
CPT/HCPCS: 36415; 74177-TC; 80053; 81003; 83690; 84703; 85025; 96365; 96375; 99285-25

== ENCOUNTER 2022-04-20 01:21 | Emergency (ER) | payer OTHER ==
[2022-04-20 01:57] VITALS: BP 117/64; PULSE 88; RESP 20; TEMP 98.4; BMI 42.3
[2022-04-20] MEDS ORDERED: DEXAMETHASONE SOD PHOSPHATE 10 MG/1 ML VIAL IVPUSH ONE (03:38)
[2022-04-20] MEDS ORDERED: DEXAMETHASONE SOD PHOSPHATE 10 MG/1 ML VIAL ONE (03:45)
[2022-04-20 04:11] LABS: BASO % 1.1 % (0-2.0); EOS % 2.3 % (0-4.5); HEMATOCRIT 44.2 % (32.4-45.2); HEMOGLOBIN 14.9 GM/dL (10.7-15.3); LYMPH % 32.8 % (8-40); MCH 31.1 pg (25.7-33.7); MCHC 33.7 g/dl (32.0-36.0); MEAN CELL VOLUME 92.2 fl (80-96); MEAN PLT VOLUME 8.7 fl (7.5-11.1); NEUT % 58.8 % (42.8-82.8); PLATELET COUNT 187 10^3/uL (134-434); RBC 4.79 M/mm3 (3.60-5.2); RDW 15.5 % (11.6-15.6); WHITE BLOOD COUNT 12.2 K/mm3 (4.0-10.0)
[2022-04-20 04:29] LABS: ALBUMIN 3.6 g/dl (3.4-5.0); BLOOD UREA NITROGEN 13.4 mg/dL (7-18)
[2022-04-20 04:32] LABS: CREATININE 0.8 mg/dL (0.55-1.3)
[2022-04-20] MEDS ORDERED: KETOROLAC TROMETHAMINE 30 MG/1 ML VIAL IVPUSH ONE (04:33)
[2022-04-20 04:34] LABS: BILIRUBIN,TOTAL 0.2 mg/dL (0.2-1); TOT PROT 6.7 g/dl (6.4-8.2)
[2022-04-20] MEDS ORDERED: KETOROLAC TROMETHAMINE 30 MG/1 ML VIAL ONE (04:34)
[2022-04-20] MEDS ORDERED: AMOXICILLIN 500 MG CAPSULE (FP) PO ONE (06:41)
[2022-04-20] MEDS ORDERED: AMOXICILLIN 500 MG CAPSULE (FP) ONE (06:48)
== END 2022-04-20 06:55 | disposition home or self-care (01) ==
LOC: JER 01:21
PROC: 3E0333Z Introduction of Anti-inflammatory into Peripheral Vein, Percutaneous Approach (ICD-10-PCS; principal; 2022-04-20)
PROC: 3E0333Z Introduction of Anti-inflammatory into Peripheral Vein, Percutaneous Approach (ICD-10-PCS; 2022-04-20)
DX: J02.9 Acute pharyngitis, unspecified (principal)
CPT/HCPCS: 0241U-QW; 36415; 70491-TC; 80053; 85025; 87651; 99285-25; J1100; Q9967

== ENCOUNTER 2022-06-30 18:33 | Emergency (ER) | payer OTHER ==
[2022-06-30 18:38] VITALS: BP 114/77; PULSE 81; RESP 18; TEMP 97; BMI 41.2
[2022-06-30] MEDS ORDERED: AMOX TR/POT CLAV 875MG/125MG TABLETS (FP) PO ONE (19:19)
[2022-06-30] MEDS ORDERED: AMOX TR/POT CLAV 875MG/125MG TABLETS (FP) ONE (19:22)
== END 2022-06-30 19:28 | disposition home or self-care (01) ==
LOC: JERFT 18:33
DX: H66.001 Acute suppurative otitis media without spontaneous rupture of ear drum, right ear (principal)
CPT/HCPCS: 99283-25

== ENCOUNTER 2023-08-16 03:20 | Emergency (ER) | payer OTHER ==
[2023-08-16 03:33] VITALS: BMI 40.7
[2023-08-16] MEDS ORDERED: SODIUM CHLORIDE FOR INHALATION 3 ML VIAL.NEB IH ONE (03:51)
[2023-08-16] MEDS ORDERED: ACETAMINOPHEN 1000 MG/100 ML BAG IVPB ONE (03:52)
[2023-08-16] MEDS ORDERED: ACETAMINOPHEN INJECTION 100 ML IVPB ONE (04:07)
[2023-08-16] MEDS ORDERED: SODIUM CHLORIDE 0.9% 500 ML INFUS.BAG IV ONE (04:10)
[2023-08-16 04:37] LABS: BASO % 0.6 % (0-2.0); EOS % 2.5 % (0-4.5); HEMATOCRIT 45.2 % (32.4-45.2); HEMOGLOBIN 15.6 GM/dL (10.7-15.3); MCH 31.4 pg (25.7-33.7); MCHC 34.5 g/dl (32.0-36.0); MEAN PLT VOLUME 8.7 fl (7.5-11.1); MONO % 8.4 % (3.8-10.2); NEUT % 56.5 % (42.8-82.8); PLATELET COUNT 197 10^3/uL (134-434); RBC 4.96 M/mm3 (3.60-5.2); RDW 15.2 % (11.6-15.6); WHITE BLOOD COUNT 10.6 K/mm3 (4.0-10.0)
[2023-08-16 05:06] LABS: ALBUMIN 3.5 g/dl (3.4-5.0); BILIRUBIN,TOTAL 0.4 mg/dL (0.2-1); BLOOD UREA NITROGEN 8.6 mg/dL (7-18); CALCIUM 8.9 mg/dL (8.5-10.1); CREATININE 0.7 mg/dL (0.55-1.3); POTASSIUM 3.8 mmol/L (3.5-5.1); TOT PROT 6.8 g/dl (6.4-8.2)
[2023-08-16 05:25] LABS: INR 1.06 (0.83-1.09); PROTHROMBIN TIME (PATIENT) 12.3 SEC (9.7-13.0)
[2023-08-16 05:27] LABS: ACTIVATED PTT 29.4 SECONDS (25.2-36.5)
[2023-08-16 05:43] VITALS: BP 115/59
[2023-08-16] MEDS ORDERED: ALBUTEROL SO4 2.5/IPRATROPIUM 0.5 INH SOL 3 ML VIAL.NEB. NEB ONE ×2 (05:47→05:52)
[2023-08-16] MEDS ORDERED: methylPREDNISolone NA SUCC 125 MG/2 ML VIAL IVPB ONE (05:49)
[2023-08-16] MEDS ORDERED: methylPREDNISolone NA SUCC 125 MG/2 ML VIAL ONE (05:53)
[2023-08-16 06:07] VITALS: PULSE 69; RESP 16; TEMP 98
== END 2023-08-16 06:33 | disposition home or self-care (01) ==
LOC: JER 03:20
PROC: 3E033NZ Introduction of Analgesics, Hypnotics, Sedatives into Peripheral Vein, Percutaneous Approach (ICD-10-PCS; principal; 2023-08-16)
PROC: 3E033GC Introduction of Other Therapeutic Substance into Peripheral Vein, Percutaneous Approach (ICD-10-PCS; 2023-08-16)
PROC: 3E0F7GC Introduction of Other Therapeutic Substance into Respiratory Tract, Via Natural or Artificial Opening (ICD-10-PCS; 2023-08-16)
PROC: 3E0F7GC Introduction of Other Therapeutic Substance into Respiratory Tract, Via Natural or Artificial Opening (ICD-10-PCS; 2023-08-16)
DX: R07.89 Other chest pain (principal); J40 Bronchitis, not specified as acute or chronic; J06.9 Acute upper respiratory infection, unspecified; R05.9 Cough, unspecified; R09.81 Nasal congestion; Z20.822 Contact with and (suspected) exposure to COVID-19
CPT/HCPCS: 0241U-QW; 36415; 71046-TC-FY; 80053; 84484; 84703; 85025; 85379; 85610; 85730; 93005; 93010; 99285-25

== ENCOUNTER 2025-07-09 07:18 | Observation (INO) | payer OTHER ==
[2025-07-09 08:13] LABS: ABSOLUTE IMMATURE GRANULOCYTES 0.03 x10^3/uL (0.0-0.031); BASOPHILS # 0.04 x10^3/uL (0.01-0.08); EOSINOPHIL % 3.4 % (0.7-5.8); EOSINOPHILS # 0.28 x10^3/uL (0.04-0.36); MCHC 33.5 g/dl (32.2-35.5); MEAN CELL VOLUME 92.3 fl (79.4-94.8); MEAN PLT VOLUME 10.7 fl (9.4-12.3); MONOCYTE # 0.53 x10^3/uL (0.24-0.86); MONOCYTE % 6.4 % (4.7-12.5); RDW 13.4 % (12.2-17.1)
[2025-07-09] MEDS ORDERED: ACETAMINOPHEN INJECTION 100 ML ONE (08:20)
[2025-07-09] MEDS: SODIUM CHLORIDE 0.9% 500 ML INFUS.BAG IV ONE ×2 (08:29→11:52)
[2025-07-09] MEDS: morphine CARPU-JECT 4 MG/1 ML DISP.SYRIN IVPUSH ONE ×2 (08:29→10:57)
[2025-07-09] MEDS: ACETAMINOPHEN 1000 MG/100 ML BAG IVPB ONE (08:29)
[2025-07-09 08:51] LABS: URINE APPEARANCE CLOUDY; URINE BILIRUBIN NEGATIVE (NEGATIVE); URINE COLOR YELLOW; URINE GLUCOSE (UA) NEGATIVE (NEGATIVE); URINE KETONE 1+ (NEGATIVE); URINE LEUK ESTERASE NEGATIVE (NEGATIVE); URINE NITRITE NEGATIVE (NEGATIVE); URINE PROTEIN NEGATIVE (NEGATIVE); URINE UROBILINOGEN 0.2 mg/dL (0.2-1.0)
[2025-07-09 08:52] LABS: GLUCOSE,RANDOM 86.0 mg/dL (74-106); TOT PROT 6.9 g/dl (6.4-8.2)
[2025-07-09 08:54] LABS: CO2 23.0 mmol/L (21-32); HCG,QUALITATIVE URINE Negative
[2025-07-09 08:55] LABS: ALK PHOS 75.0 U/L (40-150)
[2025-07-09 08:58] LABS: CREATININE 0.79 mg/dL (0.55-1.3); SGOT/AST 21.0 U/L (5-34); SGPT/ALT 12.0 U/L (0-55)
[2025-07-09] MEDS ORDERED: KETOROLAC TROMETHAMINE 15 MG/ML VIAL ONE (10:08)
[2025-07-09] MEDS: KETOROLAC TROMETHAMINE 15 MG/ML VIAL IVPUSH ONE (10:10)
[2025-07-09] MEDS ORDERED: ACETAMINOPHEN 1000 MG/100 ML BAG IVPB PRN (13:37)
[2025-07-09] MEDS ORDERED: morphine CARPU-JECT 4 MG/1 ML DISP.SYRIN IM PRN (14:45)
[2025-07-09 15:36] VITALS: BMI 38.7
[2025-07-09] MEDS: LACTATED RINGERS SOLUTION 1,000 ML/1,000 ML INFUS.BAG IV SCH (16:14)
[2025-07-09] MEDS: KETOROLAC TROMETHAMINE 15 MG/ML VIAL IVPUSH PRN (16:15)
[2025-07-09] MEDS: ACETAMINOPHEN 1000 MG/100 ML BAG IVPB PRN (19:34)
[2025-07-09] MEDS: GABAPENTIN 300 MG CAPSULE PO SCH (21:09)
[2025-07-09] MEDS: SENNOSIDES 8.6MG TABLET (FP) PO SCH (21:09)
[2025-07-10 06:59] VITALS: RESP 18
[2025-07-10] MEDS: METHYLNALTREXONE BROMIDE 8 MG/0.4 ML SYRINGE SQ ONE (08:51)
[2025-07-10 09:23] LABS: ABSOLUTE IMMATURE GRANULOCYTES 0.02 x10^3/uL (0.0-0.031); BASOPHILS # 0.04 x10^3/uL (0.01-0.08); EOSINOPHIL % 4.4 % (0.7-5.8); EOSINOPHILS # 0.32 x10^3/uL (0.04-0.36); MCHC 32.5 g/dl (32.2-35.5); MEAN CELL VOLUME 93.4 fl (79.4-94.8); MEAN PLT VOLUME 10.7 fl (9.4-12.3); MONOCYTE # 0.47 x10^3/uL (0.24-0.86); MONOCYTE % 6.5 % (4.7-12.5); RDW 13.6 % (12.2-17.1)
[2025-07-10] MEDS: ENOXAPARIN NA (PORCINE) 40 MG/0.4 ML DISP.SYRIN SQ SCH (10:06)
[2025-07-10] MEDS: FAMOTIDINE 20 MG TABLET PO SCH (10:08)
[2025-07-10] MEDS: POLYETHYLENE GLYCOL (HEALTHYLAX) 3350 17 GM PACKET PO SCH (10:08)
[2025-07-10 10:19] LABS: GLUCOSE,RANDOM 110.0 mg/dL (74-106)
[2025-07-10 10:20] LABS: TOT PROT 5.9 g/dl (6.4-8.2)
[2025-07-10 10:21] LABS: CO2 23.0 mmol/L (21-32)
[2025-07-10 10:23] LABS: ALK PHOS 61.0 U/L (40-150)
[2025-07-10 10:25] LABS: SGOT/AST 19.0 U/L (5-34); SGPT/ALT 11.0 U/L (0-55)
[2025-07-10 10:26] LABS: CREATININE 0.88 mg/dL (0.55-1.3)
[2025-07-10] MEDS: Methylnaltrexone Bromide 12 MG/0.6 ML KIT SQ ONE (10:50)
[2025-07-10] MEDS: BISACODYL 10 MG SUPP.RECT PR ONE ×2 (11:34→15:58)
[2025-07-10] MEDS: BACLOFEN 10 MG TABLET (FP) PO SCH (13:04)
[2025-07-10] MEDS: NICOTINE POLACRILEX 2 MG LOZENGE BC PRN (13:21)
[2025-07-10] MEDS: Methylnaltrexone Bromide 12 MG/0.6 ML KIT SQ SCH (14:45)
[2025-07-10] MEDS: ONDANSETRON 4 MG/2 ML VIAL IVPUSH PRN (15:57)
[2025-07-10] MEDS: MINERAL OIL ENEMA 133 ML ENEMA RC ONE (15:58)
[2025-07-10] MEDS ORDERED: POLYETHYLENE GLYCOL (HEALTHYLAX) 3350 17 GM PACKET PO PRN (19:23)
[2025-07-10] MEDS ORDERED: MINERAL OIL ENEMA 133 ML ENEMA RC PRN (19:24)
[2025-07-10] MEDS ORDERED: POLYETHYLENE GLYCOL (HEALTHYLAX) 3350 17 GM PACKET PO SCH (22:00)
[2025-07-11] MEDS: POLYETHYLENE GLYCOL (HEALTHYLAX) 3350 17 GM PACKET PO SCH (13:57)
[2025-07-11] MEDS: Methylnaltrexone Bromide 12 MG/0.6 ML KIT SQ SCH (13:57)
[2025-07-11] MEDS ORDERED: LACTULOSE 20 GM/30 ML UDC (FOR ORAL USE ONLY) PO SCH (14:00)
[2025-07-11 16:55] VITALS: BP 103/87; PULSE 89; TEMP 98.4
== END 2025-07-11 18:09 | disposition left against medical advice (07) ==
LOC: JER 07:18 → JERBED 11:50 → J6S 14:09
PROVIDERS: ADMIT Student in an Organized Health Care Education/Training Program; ATTEND Internal Medicine
PROC: 3E0333Z Introduction of Anti-inflammatory into Peripheral Vein, Percutaneous Approach (ICD-10-PCS; principal; 2025-07-09)
PROC: 3E023GC Introduction of Other Therapeutic Substance into Muscle, Percutaneous Approach (ICD-10-PCS; 2025-07-09)
PROC: 3E033NZ Introduction of Analgesics, Hypnotics, Sedatives into Peripheral Vein, Percutaneous Approach (ICD-10-PCS; 2025-07-09)
PROC: 3E033GC Introduction of Other Therapeutic Substance into Peripheral Vein, Percutaneous Approach (ICD-10-PCS; 2025-07-09)
PROC: 3E0337Z Introduction of Electrolytic and Water Balance Substance into Peripheral Vein, Percutaneous Approach (ICD-10-PCS; 2025-07-09)
DX: R10.A1 Flank pain, right side (principal); G89.29 Other chronic pain; R11.2 Nausea with vomiting, unspecified; Z90.49 Acquired absence of other specified parts of digestive tract; F17.210 Nicotine dependence, cigarettes, uncomplicated; K59.00 Constipation, unspecified
CPT/HCPCS: 36415; 74019-TC-FY; 74177-TC; 76830-TC; 80053; 81003; 83690; 83735; 84100; 84703; 85025; 87086; 96372; 96374; 96375; 96376; 99285-25; G0378; J0475